=== PATIENT | female | born 1950 | race Caucasian/White ===

== ENCOUNTER → 2017-01-01 | Outpatient (CLI) | payer OTHER ==
[~2017-01-01] MED LIST: LISINOPRIL-HCTZ1 T18 PO; LOPRESSOR PO; LORTAB 7.5-5001 TAB; MAXZIDE 75/50 T1 TAB; METFORMIN PO; OMEPRAZOLE20 M2 PO; PHENERGAN; PREDNISONE; PREMPRO; PROTONIX; REMICADE IV; TOPROL XL; ZESTORETIC 20/11 TAB; ZOLOFT; ZOLOFT50 MG PO; [UNRECOGNIZED DRUG - REMARK]
--- NOTE | ~2017-01-01 | MY11 ---
[facility] A Service of [facility] & [facility] RADIOLOGY TEXT RESULTS PATIENT: VILLA CARPENTER LOCATION: [facility] : 46 UNIT #: [id number] AGE: [address]: Megan Morrison MD SEX: F ORDER DR: [id number] [address] [address] [id number] O MR#: [id number] Acc #: [id number] NAME: VILLA CARPENTER : 1950 SEX: F STUDY DATE/TIME: 01/01/2017 11:58 UNIT: [facility] ROOM: STUDY DESCRIPTION: MY Mammogram Screening Dig Reza Attending Physician: Megan Morrison M.D. Referring Physician: Megan Morrison M.D. Ordering Physician: Megan Morrison M.D. Primary Care Physician: Megan Morrison M.D. MEDICAL IMAGING REPORT This report is preliminary unless electronic signature is present. EXAM Digital screening mammogram, 01/01/2017; [facility]. HISTORY 66-year-old woman positive family history, mother age 79. Family history of ovarian cancer in niece. Previous augmentation age 23. Annual screen. COMPARISON Mammograms date to 06/24/2005, with most recent screening 12/27/2015. TECHNIQUE Digital imaging of each breast was completed utilizing conventional projections and standard Aneesh views. Review includes FDA-approved CAD device. MediPort is identified on the left MLO standard view. FINDINGS Breast parenchyma is heterogeneous with scattered parenchymal opacities in each breast. There are occasional benign calcifications and vascular calcification noted. Bilateral subglandular silicone implants are again imaged. The fibrocalcific capsules are noted bilaterally. There is no developing mass or interval occurring microcalcifications and no architectural disturbance. IMPRESSION Benign mammogram. Stable subglandular silicone implants. Fibrocalcific encapsulation present. Annual screening recommended. Patients over the age of 40 are entered into a reminder system with target due date for the next mammogram. A result letter will also be sent to the patient. BIRADS: 2 Benign findings. [facility] A Service of [facility] & [facility] RADIOLOGY TEXT RESULTS PATIENT: VILLA CARPENTER [id number] 46 UNIT #: [id number] AGE: [address]: Megan Morrison MD SEX: F ORDER DR: Dictated by... Asa Jay M.D. THIS IS AN ELECTRONICALLY VERIFIED REPORT Asa Jay M.D. at 01/02/2017 3:01 PM Vannesa TD: 01/01/2017 17:46 JOB #: [id number] MEDICAL IMAGING REPORT Page 1 of 1
--- NOTE | ~2017-01-01 | MR113 ---
[facility] A Service of [facility] & [facility] RADIOLOGY TEXT RESULTS PATIENT: VILLA CARPENTER LOCATION: [facility] : 46 UNIT #: [id number] AGE: [address]: Megan Morrison MD SEX: F ORDER DR: [id number] [place] [id number] O MR#: [id number] Acc #: [id number] NAME: VILLA CARPENTER : 1950 SEX: F STUDY DATE/TIME: 01/01/2017 11:53 UNIT: [facility] ROOM: STUDY DESCRIPTION: MR Lumbar Wo Contrast Attending Physician: Megan Morrison M.D. Referring Physician: Megan Morrison M.D. Ordering Physician: Megan Morrison M.D. Primary Care Physician: Megan Morrison M.D. MRI CENTER REPORT This report is preliminary unless electronic signature is present. EXAM MRI of the lumbar spine without. HISTORY Increasing low back pain, bilateral extremity weakness and tingling, right greater than left with frequent falls. There is a history of degenerative disc disease, worse in the past 5 years. No history of cancer. TECHNIQUE MRI of the lumbar spine performed without contrast using routine 1.5T wide-bore imaging technique. COMPARISON There are plain films for comparison from 2009. FINDINGS There is a previous lumbar spine MRI from 2011. Redemonstrated is grade 1 anterolisthesis of L4 on L5 measuring 2-3 mm. This appears to be degenerative in etiology and it is not appreciably changed. The bone marrow signal intensity is normal. The intervertebral discs are mildly desiccated in general. The conus medullaris terminates at L2 and is normal. At L1-2, mild facet degenerative change on the left. No canal stenosis or foraminal compromise. There is a mild concentric disc bulge with some anterior plate spondylosis and a more focal small anterior protrusion. At L2-3, there is mild bilateral facet degenerative change. There is a mild concentric disc bulge. There is no canal stenosis. There is no foraminal impingement. At L3-4, mild bilateral facet hypertrophy and posterior disc bulging. No STS. [facility] A Service of [facility] RADIOLOGY TEXT RESULTS PATIENT: VILLA CARPENTER LOCATION: [facility] : 46 UNIT #: [id number] AGE: [address]: Megan Morrison MD SEX: F ORDER DR: canal stenosis and no significant foraminal impingement. At L4-5, moderate to severe facet arthritis bilaterally accounts for the anterolisthesis of 4 on 5. There is a broad posterior protrusion associated with this but there is no significant canal stenosis or foraminal compromise. At L5-S1, mild right, [id number] left-side facet degenerative change. There is a broad midline to left greater than right paramedian protrusion/small extrusion extending cephalad from the disc but remaining contiguous with it. There is no canal stenosis. There is mild mass effect on the left greater than right lateral recess. There is mild right inferior foraminal narrowing. On comparison to the prior study, the degenerative disc disease at the L5-S1 level is progressed. IMPRESSION Redemonstration of lumbar degenerative disease including grade 1 anterolisthesis of L4 on L5, secondary to facet arthritis. This is not appreciably changed from the 2012 study. There is, however, progression of discogenic disease at the L5-S1 level but there is no evidence for lumbar canal stenosis. Please refer to the comment section and correlate with the radicular symptoms. Dictated by... Mary Kay Ontiveros M.D. THIS IS AN ELECTRONICALLY VERIFIED REPORT Mary Kay Ontiveros M.D. at 01/04/2017 10:25 AM PADMINI/meredith TD: 01/01/2017 23:56 JOB #: [id number] MRI CENTER REPORT Page 1 of 1
== END | disposition home or self-care (01) ==
LOC: SMRI 12-29 10:30
DX: Z12.31 Encounter for screening mammogram for malignant neoplasm of breast (principal); M54.16 Radiculopathy, lumbar region; M43.16 Spondylolisthesis, lumbar region; M47.26 Other spondylosis with radiculopathy, lumbar region; M46.96 Unspecified inflammatory spondylopathy, lumbar region; M51.17 Intervertebral disc disorders with radiculopathy, lumbosacral region; Z80.3 Family history of malignant neoplasm of breast; Z98.82 Breast implant status
CPT/HCPCS: 72148; G0202

== ENCOUNTER → 2017-02-09 | Outpatient (CLI) | payer OTHER ==
--- NOTE | ~2017-02-09 | CR63 ---
[facility] A Service of [facility] RADIOLOGY TEXT RESULTS PATIENT: VILLA CARPENTER LOCATION: [facility] : 46 UNIT #: [id number] AGE: [address]: Megan Morrison MD SEX: F ORDER DR: [id number] [address] [address] [id number] O MR#: [id number] Acc #: [id number] NAME: VILLA CARPENTER : 1950 SEX: F STUDY DATE/TIME: 02/09/2017 13:13 UNIT: [facility] ROOM: STUDY DESCRIPTION: CR Chest 2 View Attending Physician: Megan Morrison M.D. Referring Physician: Megan Morrison M.D. Ordering Physician: Megan Morrison M.D. Primary Care Physician: Megan Morrison M.D. MEDICAL IMAGING REPORT This report is preliminary unless electronic signature is present. EXAM Chest 02/09/2017 HISTORY 66-year-old woman with bronchospasm. Cough. Congestion. Symptoms x6 weeks. COMPARISON STUDIES Chest 01/22/2015. FINDINGS Two-view chest demonstrates normal stable heart size. Hilar structures are preserved. Bilateral lungs are expanded and clear. MediPort is positioned on the left with infusion catheter tip terminating at the right atrial level. Bilateral breast augmentation with calcific encapsulation of implants. IMPRESSION No acute chest finding. Stable appearance. Dictated by... Asa Jay M.D. THIS IS AN ELECTRONICALLY VERIFIED REPORT Asa Jay M.D. at 02/10/2017 8:02 AM JIM/ventura TD: 02/09/2017 19:19 JOB #: [id number] [facility] A Service of [facility] RADIOLOGY TEXT RESULTS PATIENT: VILLA CARPENTER LOCATION: [facility] : 46 UNIT #: [id number] AGE: [address]: Megan Morrison MD SEX: F ORDER DR: MEDICAL IMAGING REPORT Page 1 of 1
== END | disposition home or self-care (01) ==
LOC: SRAD 12:56
DX: J20.9 Acute bronchitis, unspecified (principal)
CPT/HCPCS: 71020

== ENCOUNTER → 2017-03-02 | Outpatient (CLI) | payer OTHER ==
--- NOTE | ~2017-03-02 | MY24 ---
[facility] A Service of [facility] RADIOLOGY TEXT RESULTS PATIENT: VILLA CARPENTER LOCATION: [facility] : 46 UNIT #: [id number] AGE: [address]: Megan Morrison MD SEX: F ORDER DR: [id number] [facility] [address] [facility] [place], [place] [address] [id number] O MR#: [id number] Acc #: [id number] NAME: VILLA CARPENTER : 1950 SEX: F STUDY DATE/TIME: 03/02/2017 11:47 UNIT: [facility] ROOM: STUDY DESCRIPTION: LUCERO CLARIBEL ZAIDI W/ CAD UNI LT Attending Physician: Megan Morrison M.D. Referring Physician: Megan Morrison M.D. Ordering Physician: Megan Morrison M.D. Primary Care Physician: Megan Morrison M.D. MEDICAL IMAGING REPORT This report is preliminary unless electronic signature is present EXAM Left diagnostic mammogram HISTORY Clear nipple discharge for about 2 months. COMPARISON STUDIES 01/01/2017. FINDINGS Today's exam includes MLO and CC digital views of the left breast with and without implant space technique. The breast is heterogeneously dense. There is no change from the prior study. There are no masses or abnormal calcifications identified. Ultrasound of the retroareolar region did not show any significant abnormalities. IMPRESSION Diagnostic mammogram shows no change from the recent study or from the 2016 exam and there is no ultrasound evidence of malignancy in the retroareolar region. The patient has had clearish discharge for about 2 months. She has family history of breast cancer in her mother at age 70. The discharge continues for a couple more months, breast MRI could be considered but otherwise, no other imaging is recommended. BIRADS: 2 Benign Finding. Patients over the age of 40 are entered into a reminder system with target due date for the next mammogram. A result letter will also be sent to the patient. Dictated by... [facility] A Service of [facility] RADIOLOGY TEXT RESULTS PATIENT: VILLA CARPENTER LOCATION: [facility] : 46 UNIT #: [id number] AGE: [address]: Megan Morrison MD SEX: F ORDER DR: Paulo Mcmanus M.D. THIS IS AN ELECTRONICALLY VERIFIED REPORT Paulo Mcmanus M.D. at 03/02/2017 10:08 PM FEL/pcl TD: 03/02/2017 16:07 JOB #: [id number] MEDICAL IMAGING REPORT Page 1 of 1 COPY
--- NOTE | ~2017-03-02 | US24 ---
[facility] A Service of [facility] RADIOLOGY TEXT RESULTS PATIENT: VILLA CARPENTER LOCATION: [facility] : 46 UNIT #: [id number] AGE: [address]: Megan Morrison MD SEX: F ORDER DR: [id number] [facility] [address] [place], [place] [address] [id number] O MR#: [id number] Acc #: [id number] NAME: VILLA CARPENTER : 1950 SEX: F STUDY DATE/TIME: 03/02/2017 12:02 UNIT: [facility] ROOM: STUDY DESCRIPTION: US Breast Unilateral Attending Physician: Megan Morrison M.D. Referring Physician: Megan Morrison M.D. Ordering Physician: Megan Morrison M.D. Primary Care Physician: Megan Morrison M.D. MEDICAL IMAGING REPORT This report is preliminary unless electronic signature is present EXAM Left breast ultrasound INDICATION Left breast discharge for a month that is anthony to clear. Ultrasound of the retroareolar region was performed and appeared normal. IMPRESSION Normal retroareolar left breast ultrasound. Please see the mammogram report. BIRADS: 2 Benign finding. Dictated by... Paulo Mcmanus M.D. THIS IS AN ELECTRONICALLY VERIFIED REPORT Paulo Mcmanus M.D. at 03/02/2017 10:09 PM CAIT/darrick TD: 03/02/2017 17:42 JOB #: [id number] MEDICAL IMAGING REPORT Page 1 of 1 COPY
== END | disposition home or self-care (01) ==
LOC: CMAM 11:23
DX: N64.52 Nipple discharge (principal)
CPT/HCPCS: 76641; G0206